=== PATIENT | female | born 1960 | race Two or more races ===

== ENCOUNTER 2024-11-05 14:39 | Inpatient (IN) | payer OTHER ==
[2024-11-05] MEDS: SODIUM CHLORIDE 0.9% 500 ML INFUS.BAG IV ONE (15:28)
[2024-11-05] MEDS ORDERED: VANCOMYCIN 1 GM PREMIX (F) 1 GM/200 ML BAG ONE (15:32)
[2024-11-05] MEDS ORDERED: ACETAMINOPHEN INJECTION 100 ML ONE (15:32)
[2024-11-05] MEDS ORDERED: PIPERACILLIN/TAZOB 2.25 GM 2.25 GM/50 ML BAG IVPB ONE (15:32)
[2024-11-05] MEDS: ACETAMINOPHEN 1000 MG/100 ML BAG IVPB ONE (15:40)
[2024-11-05 16:01] LABS: ABSOLUTE IMMATURE GRANULOCYTES 0.21 x10^3/uL (0.0-0.031); BASOPHILS # 0.05 x10^3/uL (0.01-0.08); EOSINOPHIL % 0.8 % (0.7-5.8); EOSINOPHILS # 0.08 x10^3/uL (0.04-0.36); MCHC 34.1 g/dl (32.2-35.5); MEAN CELL VOLUME 91.8 fl (79.4-94.8); MEAN PLT VOLUME 9.0 fl (9.4-12.3); MONOCYTE # 0.82 x10^3/uL (0.24-0.86); MONOCYTE % 8.4 % (4.7-12.5); RDW 11.3 % (12.4-16.4)
[2024-11-05] MEDS: PIPERACILLIN/TAZOB 2.25 GM 2.25 GM in DEXTROSE 5%-WATER - 50 ML IVPB ONE (16:07)
[2024-11-05 16:13] LABS: INR 1.21 (0.83-1.09); PROTHROMBIN TIME (PATIENT) 13.2 SEC (9.7-13.0)
[2024-11-05 16:16] LABS: ACTIVATED PTT 26.7 SECONDS (25.2-36.5)
[2024-11-05 16:27] LABS: GLUCOSE,RANDOM 260.0 mg/dL (74-106); TOT PROT 7.1 g/dl (6.4-8.2)
[2024-11-05 16:28] LABS: CO2 26.0 mmol/L (21-32)
[2024-11-05 16:30] LABS: ALK PHOS 90.0 U/L (40-150)
[2024-11-05 16:32] LABS: SGOT/AST 16.0 U/L (5-34); SGPT/ALT 10.0 U/L (0-55)
[2024-11-05 16:33] LABS: CREATININE 0.92 mg/dL (0.55-1.3)
[2024-11-05] MEDS: VANCOMYCIN 1,000 MG in DEXTROSE 5%-WATER - 250 ML IVPB ONE (16:41)
[2024-11-05 17:01] LABS: HIV INTERPRETATION NEGATIVE (NEGATIVE)
[2024-11-05 17:02] LABS: HCV DIAGNOSTIC IN-HOUSE W/RFLX NON-REACTIVE (NONREACTIVE)
[2024-11-05] MEDS: INSULIN ASPART SLIDING SCALE (NOVOLOG) 1 VIAL SQ SCH (23:08)
[2024-11-06] MEDS: PIPERACILLIN/TAZOB 3.375 GM 3.375 GM in DEXTROSE 5%-WATER - 50 ML IVPB SCH (01:49)
[2024-11-06] MEDS: ACETAMINOPHEN 1000 MG/100 ML BAG IVPB ONE ×2 (01:49→11:56)
[2024-11-06] MEDS: VALSARTAN 160 MG TABLET PO SCH (11:04)
[2024-11-06] MEDS: LIDOCAINE HCL 1%, 10 MG/ML (20ML VIAL) NR ONE (12:07)
[2024-11-06] MEDS: LIDOCAINE HCL 1%, 10 MG/ML (20ML VIAL) SQ ONE (14:10)
[2024-11-06] MEDS: SILVER SULFADIAZINE 1% TOP CREAM 50 GM JAR TP SCH (14:11)
[2024-11-06] MEDS: ENOXAPARIN NA (PORCINE) 40 MG/0.4 ML DISP.SYRIN SQ SCH (17:16)
[2024-11-06] MEDS: ACETAMINOPHEN 500 MG TABLET (FP) PO PRN (20:32)
[2024-11-07] MEDS: SILVER SULFADIAZINE 1% TOP CREAM 50 GM JAR TP SCH (09:47)
[2024-11-08 08:09] LABS: ABSOLUTE IMMATURE GRANULOCYTES 0.05 x10^3/uL (0.0-0.031); BASOPHILS # 0.03 x10^3/uL (0.01-0.08); EOSINOPHIL % 1.0 % (0.7-5.8); EOSINOPHILS # 0.08 x10^3/uL (0.04-0.36); MCHC 33.8 g/dl (32.2-35.5); MEAN CELL VOLUME 91.8 fl (79.4-94.8); MEAN PLT VOLUME 9.2 fl (9.4-12.3); MONOCYTE # 0.67 x10^3/uL (0.24-0.86); MONOCYTE % 8.6 % (4.7-12.5); RDW 11.2 % (12.4-16.4)
[2024-11-08 08:27] LABS: TOT PROT 6.5 g/dl (6.4-8.2)
[2024-11-08 08:28] LABS: CO2 26.0 mmol/L (21-32)
[2024-11-08 08:30] LABS: ALK PHOS 75.0 U/L (40-150)
[2024-11-08 08:33] LABS: CREATININE 0.62 mg/dL (0.55-1.3); SGOT/AST 20.0 U/L (5-34); SGPT/ALT 9.0 U/L (0-55)
[2024-11-08 08:48] LABS: GLUCOSE,RANDOM 119.0 mg/dL (74-106)
[2024-11-08] MEDS: PIPERACILLIN/TAZOB 3.375 GM 3.375 GM in DEXTROSE 5%-WATER - 50 ML IVPB SCH (18:52)
[2024-11-08] MEDS: AMPICILLIN NA/SULBACTAM NA 3 GM in SODIUM CHLORIDE 100 ML IVPB SCH (22:36)
[2024-11-10] MEDS ORDERED: AMPICILLIN NA/SULBACTAM NA 3 GM VIAL ONE (01:36)
[2024-11-10] MEDS: DOXYCYCLINE HYCLATE 100 MG TABLET PO SCH (11:40)
[2024-11-10] MEDS: D5-1/2NS+10 MEQ KCL - 10 MEQ/1,000 ML INFUS.BAG IV SCH (22:19)
[2024-11-10] MEDS: INSULIN ASPART SLIDING SCALE (NOVOLOG) 1 VIAL SQ SCH (22:23)
[2024-11-11] MEDS ORDERED: PROPOFOL 20 ML ONE ×2 (07:21→08:22)
[2024-11-11] MEDS ORDERED: MIDAZOLAM HCL 2 MG/2 ML SINGLE DOSE VIAL ONE ×2 (07:22→07:59)
[2024-11-11] MEDS ORDERED: LIDOCAINE HCL 1%, 10 MG/ML (20ML VIAL) ONE (07:29)
[2024-11-11] MEDS ORDERED: BUPIVACAINE HCL/PF 0.5% (5MG/ML) 10 ML VIAL ONE (07:30)
[2024-11-11] MEDS ORDERED: DEXAMETHASONE SOD PHOSPHATE 4 MG/1 ML VIAL ONE (07:30)
[2024-11-11] MEDS ORDERED: LIDOCAINE HCL 2% (20ML MULTI-DOSE VIAL) ONE (07:30)
[2024-11-11] MEDS ORDERED: LACTATED RINGERS SOLUTION 1,000 ML IV SCH (08:00)
[2024-11-11] MEDS ORDERED: KETAMINE HCL 500 MG/10 ML VIAL ONE (08:08)
[2024-11-11] MEDS ORDERED: GENTAMICIN SO4 80 MG/2 ML VIAL ONE (08:27)
[2024-11-11 08:46] LABS: ABSOLUTE IMMATURE GRANULOCYTES 0.06 x10^3/uL (0.0-0.031); BASOPHILS # 0.04 x10^3/uL (0.01-0.08); EOSINOPHIL % 0.8 % (0.7-5.8); EOSINOPHILS # 0.07 x10^3/uL (0.04-0.36); MCHC 33.2 g/dl (32.2-35.5); MEAN CELL VOLUME 92.9 fl (79.4-94.8); MEAN PLT VOLUME 9.3 fl (9.4-12.3); MONOCYTE # 0.60 x10^3/uL (0.24-0.86); MONOCYTE % 6.9 % (4.7-12.5); RDW 11.4 % (12.4-16.4)
[2024-11-11 09:42] LABS: ABSOLUTE IMMATURE GRANULOCYTES 0.06 x10^3/uL (0.0-0.031); BASOPHILS # 0.05 x10^3/uL (0.01-0.08); EOSINOPHIL % 1.0 % (0.7-5.8); EOSINOPHILS # 0.09 x10^3/uL (0.04-0.36); MCHC 33.4 g/dl (32.2-35.5); MEAN CELL VOLUME 92.5 fl (79.4-94.8); MEAN PLT VOLUME 9.1 fl (9.4-12.3); MONOCYTE # 0.69 x10^3/uL (0.24-0.86); MONOCYTE % 7.3 % (4.7-12.5); RDW 11.4 % (12.4-16.4)
[2024-11-11 09:49] LABS: CO2 23.0 mmol/L (21-32)
[2024-11-11 09:52] LABS: GLUCOSE,RANDOM 148.0 mg/dL (74-106)
[2024-11-11 09:53] LABS: CREATININE 0.58 mg/dL (0.55-1.3)
[2024-11-11] MEDS: DOXYCYCLINE HYCLATE 100 MG TABLET PO SCH (10:17)
[2024-11-11] MEDS: VALSARTAN 160 MG TABLET PO SCH (10:18)
[2024-11-11] MEDS: INSULIN ASPART SLIDING SCALE (NOVOLOG) 1 VIAL SQ SCH (11:58)
[2024-11-11] MEDS ORDERED: ACETAMINOPHEN 325 MG TABLET (FP) PO PRN (13:45)
[2024-11-11] MEDS: AMPICILLIN NA/SULBACTAM NA 3 GM in SODIUM CHLORIDE 100 ML IVPB SCH (14:38)
[2024-11-11] MEDS: D5-1/2NS+10 MEQ KCL - 10 MEQ/1,000 ML INFUS.BAG IV SCH (14:40)
[2024-11-12 14:05] VITALS: BMI 34.3
[2024-11-13 07:37] LABS: ABSOLUTE IMMATURE GRANULOCYTES 0.08 x10^3/uL (0.0-0.031); BASOPHILS # 0.06 x10^3/uL (0.01-0.08); EOSINOPHIL % 1.1 % (0.7-5.8); EOSINOPHILS # 0.10 x10^3/uL (0.04-0.36); MCHC 33.7 g/dl (32.2-35.5); MEAN CELL VOLUME 92.1 fl (79.4-94.8); MEAN PLT VOLUME 8.9 fl (9.4-12.3); MONOCYTE # 0.79 x10^3/uL (0.24-0.86); MONOCYTE % 8.7 % (4.7-12.5); RDW 11.7 % (12.4-16.4)
[2024-11-13 08:24] LABS: GLUCOSE,RANDOM 113.0 mg/dL (74-106); TOT PROT 6.2 g/dl (6.4-8.2)
[2024-11-13 08:25] LABS: CO2 24.0 mmol/L (21-32)
[2024-11-13 08:27] LABS: ALK PHOS 70.0 U/L (40-150)
[2024-11-13 08:30] LABS: CREATININE 0.56 mg/dL (0.55-1.3); SGOT/AST 18.0 U/L (5-34); SGPT/ALT 9.0 U/L (0-55)
[2024-11-14] MEDS: LACTATED RINGERS SOLUTION 1,000 ML IV SCH (10:47)
[2024-11-16 08:07] LABS: ABSOLUTE IMMATURE GRANULOCYTES 0.04 x10^3/uL (0.0-0.031); BASOPHILS # 0.06 x10^3/uL (0.01-0.08); EOSINOPHIL % 1.2 % (0.7-5.8); EOSINOPHILS # 0.08 x10^3/uL (0.04-0.36); MCHC 32.8 g/dl (32.2-35.5); MEAN CELL VOLUME 93.0 fl (79.4-94.8); MEAN PLT VOLUME 9.2 fl (9.4-12.3); MONOCYTE # 0.75 x10^3/uL (0.24-0.86); MONOCYTE % 11.3 % (4.7-12.5); RDW 12.1 % (12.4-16.4)
[2024-11-16 08:40] LABS: GLUCOSE,RANDOM 108 mg/dL (74-106); TOT PROT 5.9 g/dl (6.4-8.2)
[2024-11-16 08:41] LABS: CO2 24 mmol/L (21-32)
[2024-11-16 08:43] LABS: ALK PHOS 68 U/L (40-150)
[2024-11-16 08:45] LABS: SGOT/AST 15 U/L (5-34); SGPT/ALT < 6 U/L (0-55)
[2024-11-16 08:46] LABS: CREATININE 0.58 mg/dL (0.55-1.3)
[2024-11-16] MEDS: ACETAMINOPHEN 500 MG TABLET (FP) PO PRN (21:27)
[2024-11-17] MEDS: amLODIPine BESYLATE 5 MG TABLET (FP) PO SCH (19:00)
[2024-11-17] MEDS: HYDROCHLOROTHIAZIDE 12.5 MG CAPSULE (FP) PO ONE (22:11)
[2024-11-17] MEDS: VALSARTAN 160 MG TABLET PO ONE (22:11)
[2024-11-18] MEDS: AMOX TR/POT CLAV 875MG/125MG TABLETS (FP) PO SCH (18:22)
[2024-11-19 07:18] VITALS: RESP 18
[2024-11-19 09:53] VITALS: TEMP 98.1
[2024-11-19 14:06] VITALS: BP 173/74; PULSE 75
== END 2024-11-19 20:42 | disposition home or self-care (01) | DRG 572 ==
LOC: JER 14:39 → JERBED 18:39 → J7W 19:03 → OBSVTOIN 11-06 11:52
PROVIDERS: ADMIT Internal Medicine; ATTEND Internal Medicine
PROC: 0JBQ0ZZ Excision of Right Foot Subcutaneous Tissue and Fascia, Open Approach (ICD-10-PCS; principal; 2024-11-11 08:04)
DX: L03.115 Cellulitis of right lower limb (principal); E11.9 Type 2 diabetes mellitus without complications; I10 Essential (primary) hypertension
CPT/HCPCS: 36415; 73718-TC-RT; 80048; 80053; 82962; 85025; 85610; 85651; 85730; 86140; 86803; 87070; 87075; 87205; 87389; 88304-TC; 94760; 99285-25; G0378